=== PATIENT | female | born 1975 | race Caucasian/White ===

== ENCOUNTER → 2020-02-01 | Outpatient (CLI) | payer OTHER ==
[~2020-02-01] MED LIST: ACET325T14 PO; ALPR0.25 PO; CYCL5TAB PO; DEXA2TAB PO; DOCU100C33 PO; HYDR-2995 PO; HYDR1TAB13 PO; IBUP200C8 PO; LORA1TAB PO; MAGN400O7 PO; MINE120C TP; MULT1CAP19 PO; MUPI22OI2 TP; OXYC-302 PO; PREG100C PO; SERT25TA PO; SILV20CR13 TP
== END | disposition home or self-care (01) ==
LOC: LAB 11:48
PROVIDERS: ATTEND Obstetrics & Gynecology
DX: O02.1 Missed abortion (principal)
CPT/HCPCS: 36415; 84702; 86900

== ENCOUNTER → 2020-02-01 | Outpatient (CLI) | payer OTHER, MEDICAID | END | disposition home or self-care (01) | LOC: STAR 11:24 | PROVIDERS: ATTEND Obstetrics & Gynecology | DX: Z20.828 Contact with and (suspected) exposure to other viral communicable diseases (principal) | CPT/HCPCS: 87635 ==

== ENCOUNTER 2020-02-05 10:36 | Day surgery (SDC) | payer OTHER, MEDICAID ==
[~2020-02-05] VITALS: Ht 177.8 cm; Wt 89.0 kg
[2020-02-05 10:57] VITALS: BP 161/93
[2020-02-05] MEDS ORDERED: CHLORHEXIDINE 15 ML UDC MM STA (11:00)
[2020-02-05] MEDS ORDERED: CHLORHEXIDINE 15 ML UDC ONE (11:07)
[2020-02-05] MEDS ORDERED: PLEASE ENTER HEIGHT AND WEIGHT MC SCH (11:30)
[2020-02-05 11:48] LABS: BASOPHILS % (AUTO) 1 % (0-1); EOSINOPHILS % (AUTO) 5 % (1-7); LYMPHOCYTES % (AUTO) 32 % (22-44); MEAN CORPUSCULAR HEMOGLOBIN 33.4 pg (27.0-34.8); MEAN CORPUSCULAR HGB CONC 34.5 g/dL (32.4-35.8); MEAN PLATELET VOLUME 7.9 fL (7.4-10.4); MONOCYTES % (AUTO) 6 % (2-9); NEUTROPHILS % (AUTO) 57 % (42-75); PLATELET COUNT 283 x10^3/uL (130-400); RED BLOOD COUNT 4.46 x10^6/uL (3.82-5.3); RED CELL DISTRIBUTION WIDTH 12.9 % (9.6-15.2)
[2020-02-05 11:50] LABS: MD NO
[2020-02-05] MEDS ORDERED: LACTATED RINGERS 1,000 ML IV SCH (12:00)
[2020-02-05] MEDS ORDERED: OMEP-110 PO (12:09)
[2020-02-05] MEDS ORDERED: FENTANYL PF 250 MCG/5ML ONE (12:20)
[2020-02-05] MEDS ORDERED: MIDAZOLAM 1 MG/ML, 2ML ONE (12:20)
[2020-02-05] MEDS ORDERED: KETOROLAC 30 MG/1 ML ONE (12:20)
[2020-02-05] MEDS ORDERED: MISOPROSTOL 200 MCG TABLET ONE (12:39)
[2020-02-05] MEDS ORDERED: SILVER NITRATE STICK TP ONE (12:39)
[2020-02-05] MEDS ORDERED: OXYTOCIN 10 UNITS/ML, 1ML ONE (12:39)
[2020-02-05] MEDS ORDERED: SCOPOLAMINE 1MG PATCH TD ONE (12:46)
[2020-02-05] MEDS ORDERED: DEXAMETHASONE 4 MG/ML, 1ML ONE (12:51)
[2020-02-05] MEDS ORDERED: morphine SULFATE 10 MG/ML, 1ML IVPush PRN (13:00)
[2020-02-05] MEDS ORDERED: HYDROmorphone 1 MG/ML, 1ML INJ IVPush PRN (13:00)
[2020-02-05] MEDS ORDERED: HALOPERIDOL 5 MG/ML IV PRN (13:00)
[2020-02-05] MEDS ORDERED: FENTANYL PF 100 MCG/2ML IV PRN (13:00)
[2020-02-05] MEDS ORDERED: hydrALAzine 20 MG/ML, 1ML IV PRN (13:00)
[2020-02-05] MEDS ORDERED: LABETALOL 5MG/ML, 20ML IV PRN (13:00)
[2020-02-05] MEDS ORDERED: ACETAMINOPHEN 325 MG TABLET PO PRN (13:00)
[2020-02-05] MEDS ORDERED: OXYcodone 5 MG/5 ML ORAL.SOL UDC PO PRN (13:00)
[2020-02-05] MEDS ORDERED: PROMETHAZINE 25 MG/ML, 1ML IVPush PRN (13:00)
[2020-02-05] MEDS ORDERED: MEPERIDINE/PF 25MG/0.5ML IVPush PRN (13:00)
[2020-02-05] MEDS ORDERED: ONDANSETRON 2MG/ML, 2ML ONE (13:18)
[2020-02-05] MEDS ORDERED: PROPOFOL 10 MG/ML, 20ML ONE (13:18)
[2020-02-05] MEDS ORDERED: CEFAZOLIN 1,000 MG ONE (13:18)
== END 2020-02-05 16:00 | disposition home or self-care (01) ==
LOC: OUT 10:36
PROVIDERS: ATTEND Obstetrics & Gynecology
DX: O02.1 Missed abortion (principal); K21.9 Gastro-esophageal reflux disease without esophagitis; F32.9 Major depressive disorder, single episode, unspecified; Z79.899 Other long term (current) drug therapy; Z85.038 Personal history of other malignant neoplasm of large intestine; Z88.0 Allergy status to penicillin; Z88.8 Allergy status to other drugs, medicaments and biological substances; Z92.21 Personal history of antineoplastic chemotherapy
CPT/HCPCS: 36415; 59820; 84702; 85025; 86850; 86900; 88305; J0690; J1885; J2250; J2405; J2704; J3010; J7120; J1100; J2590